=== PATIENT | female | born 1950 | race Caucasian/White ===

== ENCOUNTER → 2018-06-29 14:32 | Outpatient (CLI) | payer MEDICARE, OTHER, SELFPAY ==
[2018-06-29 15:41] LABS: Phenytoin (Dilantin) Level 18.9 mL (10.0-20.0)
== END ==
PROVIDERS: Referring Provider Psychiatry & Neurology Neurology; Visit Provider Psychiatry & Neurology Neurology
DX: G40.909 Epilepsy, unspecified, not intractable, without status epilepticus (principal)
CPT/HCPCS: 36415; 80184; 80185